=== PATIENT | female | born 1970 | race Caucasian/White ===

== ENCOUNTER 2021-10-18 07:28 | Emergency (ER) | payer OTHER ==
[2021-10-18] MEDS ORDERED: NAPROSYN500 MG PO (11:25)
[2021-10-18] MEDS ORDERED: CYCLOBENZAPRINE10 MG PO (11:25)
== END 2021-10-18 11:45 | disposition home or self-care (01) ==
LOC: ER1 07:28
DX: S39.012A Strain of muscle, fascia and tendon of lower back, initial encounter (principal); M25.512 Pain in left shoulder; M79.632 Pain in left forearm; F17.290 Nicotine dependence, other tobacco product, uncomplicated; Z86.718 Personal history of other venous thrombosis and embolism; Z88.8 Allergy status to other drugs, medicaments and biological substances; V89.2XXA Person injured in unspecified motor-vehicle accident, traffic, initial encounter; W22.10XA Striking against or struck by unspecified automobile airbag, initial encounter
CPT/HCPCS: 72100; 73030; 73060; 73090; 99283